=== PATIENT | male | born 1980 | race Caucasian/White ===

== ENCOUNTER 2020-12-06 16:01 | Emergency (ER) | payer OTHER ==
[~2020-12-06] VITALS: Ht 175.3 cm; Wt 81.1 kg
[2020-12-06] MEDS ORDERED: SODIUM CHLORIDE FLUSH 10ML SYR IVF ONE ×2 (16:30→19:00)
[2020-12-06] MEDS ORDERED: SODIUM CHLORIDE 0.9% 1,000ML IVBOLUS ONE ×3 (16:30→19:00)
[2020-12-06] MEDS ORDERED: ONDANSETRON 2MG/ML, 2ML IVPush ONE (16:30)
--- NOTE | 2020-12-06 17:17 | NUR ---
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
[2020-12-06] MEDS ORDERED: ONDANSETRON 2MG/ML, 2ML ONE (17:46)
[2020-12-06] MEDS ORDERED: MORPHINE SULFATE 4 MG/ML, 1ML ONE ×2 (17:46→19:04)
[2020-12-06] MEDS: MORPHINE SULFATE 4 MG/ML, 1ML IVPush PRN ×2 (17:50→19:05)
--- NOTE | 2020-12-06 17:50 | NUR ---
PT HAD NASOPHARANGEAL SURGERY ON TUESDAY. C/O PAIN 05/19, DIFFICULTY TOLERATING PO'S, AND HAVING CHILLS. 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 PTS THROAT APPEARS RED WITH WHITE PATCHES THROUGHOUT.
[2020-12-06 18:10] LABS: ALANINE AMINOTRANSFERASE 31 U/L (12-78); ALBUMIN 3.8 g/dL (3.4-5.0); ANION GAP 11 mmol/L (5-15); BASOPHILS % (AUTO) 0 % (0-1); CALCIUM 10.2 mg/dL (8.5-10.1); CHLORIDE 101 mmol/L (98-107); CREATININE 1.14 mg/dL (0.7-1.3); EOSINOPHILS % (AUTO) 1 % (1-7); LYMPHOCYTES % (AUTO) 16 % (22-44); MEAN CORPUSCULAR HEMOGLOBIN 30.6 pg (27.5-34.5); MEAN CORPUSCULAR HGB CONC 34.5 g/dL (33.2-36.2); MEAN PLATELET VOLUME 9.7 fL (7.4-10.4); MONOCYTES % (AUTO) 10 % (2-9); NEUTROPHILS % (AUTO) 73 % (42-75); PLATELET COUNT 233 x10^3/uL (130-400); RED BLOOD COUNT 5.83 x10^6/uL (4.38-5.82); RED CELL DISTRIBUTION WIDTH 12.5 % (9.4-14.8)
[2020-12-06 18:12] LABS: ALKALINE PHOSPHATASE 67 U/L (45-117); BILIRUBIN,TOTAL 0.7 mg/dL (0.2-1.0); TOTAL PROTEIN 8.4 g/dL (6.4-8.2)
[2020-12-06 18:25] LABS: MD SCAN
[2020-12-06] MEDS ORDERED: DEXAMETHASONE 4 MG/ML, 1ML ONE (18:59)
[2020-12-06] MEDS ORDERED: DEXAMETHASONE 4 MG/ML, 1ML IVPush ONE (19:00)
[2020-12-06] MEDS ORDERED: MORPHINE SULFATE 4 MG/ML, 1ML IVPush PRN (19:00)
--- NOTE | 2020-12-06 19:00 | NUR ---
PT RESTING, STATES PAIN WAS GETTING BETTER THEN STARTED COMING BACK, GIVEN MORE MEDICATION PER EMAR.
--- NOTE | 2020-12-06 19:38 | NUR ---
PT GIVEN SWABS FOR ORAL COMFORT
--- NOTE | 2020-12-06 20:10 | NUR ---
PER ER LYNNETTE AGUSTIN TO GIVE 3RD ORDER OF FLUID AND THEN DC
[2020-12-06 21:00] VITALS: BP 129/89
== END 2020-12-06 21:21 | disposition home or self-care (01) ==
LOC: ED 19:31
DX: J02.9 Acute pharyngitis, unspecified (principal); G89.18 Other acute postprocedural pain; R00.0 Tachycardia, unspecified
CPT/HCPCS: 36415; 80053; 85025; 96361; 96374; 96375; 96376; 99285; J1100; J2270; J2405; J7030